=== PATIENT | male | born 1985 | race African-American/Black ===

== ENCOUNTER 2017-07-10 23:52 | Day surgery (SDC) | payer OTHER ==
[~2017-07-10] VITALS: Ht 182.9 cm; Wt 108.9 kg
[2017-07-11 03:33] VITALS: BP 137/89
[2017-07-11] MEDS ORDERED: TUMS500 MG PO (20:46)
[2017-07-11] MEDS ORDERED: RISPERDAL2 MG PO (20:47)
[2017-07-11] MEDS ORDERED: CLOTRIMAZOLE15 GM TP (20:47)
[2017-07-11] MEDS ORDERED: HYDROCHLOROTHIA25 MG PO (20:47)
[2017-07-11] MEDS ORDERED: ZOLOFT50 MG PO (20:48)
== END 2017-07-11 05:00 ==
LOC: EME 23:52 → SDC 07-11 03:34
PROC: 0DC58ZZ Extirpation of Matter from Esophagus, Via Natural or Artificial Opening Endoscopic (ICD-10-PCS; principal; 2017-07-11)
DX: T18.198A Other foreign object in esophagus causing other injury, initial encounter (principal); X78.8XXA Intentional self-harm by other sharp object, initial encounter; Y92.149 Unspecified place in prison as the place of occurrence of the external cause; F20.0 Paranoid schizophrenia; R45.851 Suicidal ideations; K29.70 Gastritis, unspecified, without bleeding; E66.9 Obesity, unspecified; Z68.32 Body mass index [BMI] 32.0-32.9, adult; I10 Essential (primary) hypertension; F17.200 Nicotine dependence, unspecified, uncomplicated
CPT/HCPCS: 74020; 93005; 99281; 99284; J0330; J1100; J2405; J7030

== ENCOUNTER 2017-07-11 18:08 | Day surgery (SDC) | payer OTHER ==
[~2017-07-11] VITALS: Ht 182.9 cm; Wt 105.5 kg
[2017-07-11] MEDS ORDERED: TUMS500 MG PO (20:46)
[2017-07-11] MEDS ORDERED: CLOTRIMAZOLE15 GM TP (20:47)
[2017-07-11] MEDS ORDERED: HYDROCHLOROTHIA25 MG PO (20:47)
[2017-07-11] MEDS ORDERED: RISPERDAL2 MG PO (20:47)
[2017-07-11] MEDS ORDERED: ZOLOFT50 MG PO (20:48)
[2017-07-11 21:34] VITALS: BP 138/84
== END 2017-07-11 23:55 ==
LOC: EME 18:08 → SDC 21:39 → EME 21:39 → SDC 21:42
PROC: 0DC68ZZ Extirpation of Matter from Stomach, Via Natural or Artificial Opening Endoscopic (ICD-10-PCS; principal; 2017-07-11)
DX: T18.2XXA Foreign body in stomach, initial encounter (principal); X78.8XXA Intentional self-harm by other sharp object, initial encounter; Y92.149 Unspecified place in prison as the place of occurrence of the external cause; F20.0 Paranoid schizophrenia; F11.10 Opioid abuse, uncomplicated; F17.200 Nicotine dependence, unspecified, uncomplicated
CPT/HCPCS: 71020; 74000; 74176; 99281; 99284; C9113